=== PATIENT | female | born 1935 | race Caucasian/White ===

== ENCOUNTER → 2016-08-02 | Outpatient (CLI) | payer MEDICARE, BC | END | disposition home or self-care (01) | LOC: RAD 14:23 | PROVIDERS: ATTEND Internal Medicine | DX: G31.9 Degenerative disease of nervous system, unspecified (principal); J32.0 Chronic maxillary sinusitis; N13.30 Unspecified hydronephrosis; Q61.00 Congenital renal cyst, unspecified | CPT/HCPCS: 70450; 76770 ==